=== PATIENT | male | born 1975 | race Two or more races ===

== ENCOUNTER 2019-10-25 18:05 | Inpatient (IN) | payer MEDICAID, OTHER ==
[~2019-10-25] VITALS: Ht 188 cm; Wt 99.3 kg
--- NOTE | 2019-10-25 18:10 | NUR ---
[id number] HOME, WITNESSED SEIZURE LIKE ACTIVITY WHILE AT HOME. PT AWAKE,STATES NO SEIZURE DISORDER. TO ER BED 9, HOOKED TO MONITOR, CHANGED TO HOSP GOWN, WARM BLANKET PROVIDED. SEIZURE PRECAUTION APPLIED. AWAITING MD CONTE.
--- NOTE | 2019-10-25 18:12 | NUR ---
FREIGHT FORWARDER DEGRASSE AT BEDSIDE
[2019-10-25 18:26] LABS: BASOPHILS # (AUTO) 0.1 /CMM (0.0-0.2); BASOPHILS % (AUTO) 0.9 % (0.0-2.0); EOSINOPHILS % (AUTO) 1.2 % (0.0-6.0); HEMATOCRIT 42 % (39-51); HEMOGLOBIN 13.9 g/dL (13.5-17.5); LYMPHOCYTES # (AUTO) 3.3 /CMM (0.8-4.8); LYMPHOCYTES % (AUTO) 39.7 % (20.0-44.0); MEAN CORPUSCULAR HGB CONC 34 g/dl (31.0-36.0); MEAN CORPUSCULAR VOLUME 92 fL (80-96); MONOCYTES # (AUTO) 0.8 /CMM (0.1-1.30); MONOCYTES % (AUTO) 9.6 % (2.0-12.0); NEUTROPHILS % (AUTO) 48.6 % (43.0-81.0); PLATELET COUNT (AUTO) 302 /CMM (150-450); RED BLOOD CELL COUNT(AUTO) 4.49 MIL/uL (4.5-6.0); WHITE BLOOD COUNT (AUTO) 8.3 K/uL (4.3-11.0)
[2019-10-25] MEDS ORDERED: IV NS 0.9% 1,000 ML BAG IV ONE (18:30)
--- NOTE | 2019-10-25 18:30 | NUR ---
CRO AT BEDSIDE
[2019-10-25 18:39] LABS: ALANINE AMINOTRANSFERASE 40 U/L (12-78); ALBUMIN 3.7 g/dL (3.4-5.0); ALKALINE PHOSPHATASE 78 U/L (46-116); ASPARTATE AMINOTRANSFERASE 72 U/L (15-37); BILIRUBIN,DIRECT 0.2 mg/dL (0.0-0.2); BILIRUBIN,TOTAL 0.6 mg/dL (0.2-1.0); CALCIUM, SERUM 9.7 mg/dL (8.5-10.1); CARBON DIOXIDE 25 mmol/L (21-32); CHLORIDE 100 mmol/L (98-107); CREATININE 0.9 mg/dL (0.6-1.3); GLUCOSE 131 mg/dL (74-106); POTASSIUM 3.8 mmol/L (3.5-5.1); SODIUM SERUM 137 mmol/L (136-145); TOTAL PROTEIN, SERUM 7.7 g/dL (6.4-8.2); UREA NITROGEN, BLOOD 9 mg/dL (7-18)
--- NOTE | 2019-10-25 19:25 | NUR ---
REPORT GIVEN TO AYDEN STANFORD FOR ERNA
[2019-10-25] MEDS ORDERED: IV NS 0.9% 1,000 ML IV PRN (19:53)
[2019-10-25] MEDS ORDERED: LORAZEPAM INJ 2 MG/ML VIAL ONE (19:56)
[2019-10-25] MEDS ORDERED: LORAZEPAM INJ 2 MG/ML VIAL IV PRN (20:00)
[2019-10-25] MEDS ORDERED: ACETAMINOPHEN 325 MG TABLET PO PRN (20:00)
[2019-10-25] MEDS ORDERED: LEVETIRACETAM (500MG) 500 MG in IV NS 0.9% 100 ML IV SCH ×5 (20:00→23:00)
[2019-10-25] MEDS ORDERED: LORAZEPAM INJ 2 MG/ML VIAL IV ONE (20:00)
[2019-10-25] MEDS ORDERED: MAG HYDROX/AL HYDROX/SIMETH 30 ML UDC PO PRN (20:00)
[2019-10-25] MEDS ORDERED: ONDANSETRON HCL/PF 4 MG/2 ML VIAL IVP PRN (20:00)
[2019-10-25] MEDS ORDERED: MAGNESIUM HYDROXIDE 30 ML UDC PO PRN (20:00)
[2019-10-25] MEDS ORDERED: Z GUARD REMEDY 2 OZ OINT TP PRN (20:00)
--- NOTE | 2019-10-25 20:09 | NUR ---
PATIENT TAKEN TO CT
[2019-10-25] MEDS ORDERED: LEVETIRACETAM (500MG) 500 MG in IV NS 0.9% 100 ML IV ONE (20:30)
--- NOTE | 2019-10-25 20:32 | NUR ---
US AT BEDSIDE
--- NOTE | 2019-10-25 21:20 | NUR ---
LEARNING SUPPORT AIDE AT BEDSIDE
--- NOTE | 2019-10-25 21:30 | NUR ---
REPORT GIVEN TO JORGITO STANFORD FOR ERNA.
[2019-10-25 22:50] VITALS: BP 132/58
--- NOTE | 2019-10-25 23:43 | NUR ---
M1A1 TANK CREWMAN ADMITTING NOTES Patient received from ER via gurney accompanied by er staff. Patient a/o x 4, able to ambulate steady. On Ra with breathing even and unlabored, no sob noted. No signs of acute distress, no complaints of pain or discomfort at the moment. Iv located on R AC #20 patent and intact. Tele monitors placed. Skin assessment done. Belongings accounted for . VS taken 132/58 HR 118 RR 18 T 99.1 O2 96%. Seizure precautions in place. Safety precautions in place with bed in lowest position, call light within reach, breaks on, side rails up. Will continue to monitor throughout the night.
[2019-10-25] MEDS ORDERED: LEVETIRACETAM (500MG) 500 MG/5 ML VIAL IV ONE (23:55)
[2019-10-26] VITALS: BP 128/86
[2019-10-26 00:19] VITALS: BP 128/86
[2019-10-26] MEDS ORDERED: LEVETIRACETAM (500MG) 500 MG in IV NS 0.9% 100 ML IV SCH ×2 (01:00→10:00)
[2019-10-26 04:00] VITALS: BP 131/86
[2019-10-26 04:09] LABS: BASOPHILS % (AUTO) 0.5 % (0.0-2.0); EOSINOPHILS % (AUTO) 0.7 % (0.0-6.0); HEMATOCRIT 38 % (39-51); HEMOGLOBIN 12.7 g/dL (13.5-17.5); LYMPHOCYTES # (AUTO) 1.7 /CMM (0.8-4.8); LYMPHOCYTES % (AUTO) 19.4 % (20.0-44.0); MEAN CORPUSCULAR HGB CONC 34 g/dl (31.0-36.0); MEAN CORPUSCULAR VOLUME 92 fL (80-96); MONOCYTES % (AUTO) 11.6 % (2.0-12.0); NEUTROPHILS % (AUTO) 67.8 % (43.0-81.0); PLATELET COUNT (AUTO) 280 /CMM (150-450); RED BLOOD CELL COUNT(AUTO) 4.13 MIL/uL (4.5-6.0); WHITE BLOOD COUNT (AUTO) 8.8 K/uL (4.3-11.0)
[2019-10-26 04:21] LABS: ALBUMIN 3.1 g/dL (3.4-5.0); BILIRUBIN,TOTAL 0.6 mg/dL (0.2-1.0); CALCIUM, SERUM 9.1 mg/dL (8.5-10.1); CREATININE 0.7 mg/dL (0.6-1.3); MAGNESIUM 2.4 mg/dL (1.8-2.4); PHOSPHORUS 2.4 mg/dL (2.5-4.9); POTASSIUM 3.2 mmol/L (3.5-5.1); TOTAL PROTEIN, SERUM 6.7 g/dL (6.4-8.2)
[2019-10-26 04:32] LABS: THYROID STIMULATING HORMONE 1.775 uIU/mL (0.358-3.74)
--- NOTE | 2019-10-26 06:31 | NUR ---
COMMUNICATIONS DEPARTMENT HEAD OPENING NOTES PATIENT CURRENTLY RESTING IN BED A/O X4. STABLE ON RA WITH BREATHING EVEN AND UNLABORED, NO SOB NOTED. NO SIGNS OF ACUTE DISTRESS. NO COMPLAINTS OF PAIN OR DISCOMFORT. TELE MONITOR READING SR. IV LOCATED ON R AC #20 RUNNING NS @ 75 ML/HR. SAFETY PRECAUTIONS IN PLACE WITH BED IN LOWEST POSITION, CALL LIGHT WITHIN REACH, BREAKS ON, SIDE RAILS UP. SEIZURE PRECAUTIONS IN PLACE. ALL NEEDS ATTENDED TO. WILL ENDORSE TO ONCOMING SHIFT ABOUT ERNA.
[2019-10-26] MEDS ORDERED: PANTOPRAZOLE 40 MG TABLET.DR PO SCH (07:30)
[2019-10-26 08:00] VITALS: BP 127/84
[2019-10-26] MEDS ORDERED: ASPI-1169 PO (08:27)
[2019-10-26] MEDS: NEUTRA PHOS 1 POWD.PACKET PO SCH ×2 (08:30→15:00)
[2019-10-26] MEDS ORDERED: ASPIRIN 81 MG TAB.CHEW PO SCH (09:00)
[2019-10-26] MEDS: POTASSIUM CHLORIDE 20 MEQ TAB.PRT.SR PO SCH ×2 (10:22→12:29)
[2019-10-26] MEDS ORDERED: NEUTRA PHOS 1 POWD.PACKET NG ONE (10:30)
--- NOTE | 2019-10-26 14:41 | NUR ---
MS/RN NOTE THE PATIENT COMPLIANCE OF HEADACHE 09/18. TYLENOL 650 MG PO IS GIVEN. WILL CONTINUE TO MONITOR.
--- NOTE | 2019-10-26 16:00 | NUR ---
RN NOTE THE PATIENT ALERT AND ORIENTED X4. IN ROOM AIR AND SATURATION IS AT 99%. DENIES SOB. RESPIRATION REGULAR AND UNLABORED. DENIES PAIN. THE PATIENT IN NO APPARENT DISTRESS. DISCHARGE EDUCATION PROVIDED AND THE PATIENT VERBALIZED UNDERSTANDING. THE PRESCRIPTION GIVEN TO THE PATIENT AND THE COPY IS KEPT IN THE CHART. RAC G 20 IV CATH REMOVED AND NO BLEEDING NOTED. PATIENT GOT PICKED UP BY MOTHER AND ON A CAR. THE PATIENT LEFT THE HOSPITAL IN STABLE CONDITION.
== END 2019-10-26 16:00 | disposition home or self-care (01) | DRG 53 ==
LOC: ER 18:07 → TELE 21:14
PROVIDERS: ADMIT Registered Nurse; ATTEND Nurse Practitioner Acute Care
DX: G40.909 Epilepsy, unspecified, not intractable, without status epilepticus (principal); E83.39 Other disorders of phosphorus metabolism; E66.9 Obesity, unspecified; I48.0 Paroxysmal atrial fibrillation; R55 Syncope and collapse; E87.6 Hypokalemia; Z68.32 Body mass index [BMI] 32.0-32.9, adult; Z79.899 Other long term (current) drug therapy; Z91.81 History of falling
CPT/HCPCS: 36415; 70450-TC; 71045-TC; 80048-TC; 80053-TC; 80061-TC; 80076-TC; 80305; 82140-TC; 83735-TC; 84100-TC; 84443-TC; 84484-TC; 85025-TC; 85730-TC; 87081-TC; 93307-TC; 93880-TC; 95819-TC; 97116-TC; 97530-TC; G0378; G0480; J1953; J2060; J7030